=== PATIENT | male | born 1995 | race Caucasian/White ===

== ENCOUNTER 2023-02-22 15:22 | Emergency (ER) | payer SELFPAY ==
[~2023-02-22] VITALS: Ht 177.8 cm; Wt 74.0 kg
[~2023-02-22 15:22] MED LIST: LACT10SO7 MT; THIA100T72 MT
[2023-02-22 15:27] VITALS: O2SAT 98
[2023-02-22] MEDS ORDERED: ACETAMINOPHEN 325MG TABLET PO STA (16:15)
[2023-02-22 18:27] VITALS: BP 115/76; PULSE 69; RESP 16; TEMP 98.3
[2023-02-23] MEDS ORDERED: KEPP500 MT (01:27)
== END 2023-02-22 18:28 | disposition home or self-care (01) ==
LOC: ER 15:22
DX: R56.9 Unspecified convulsions (principal); R51.9 Headache, unspecified
CPT/HCPCS: 82962; 93005; 99283; Z7610 ×3

== ENCOUNTER 2023-02-22 20:54 | Emergency (ER) | payer SELFPAY ==
[~2023-02-22] VITALS: Ht 172.7 cm; Wt 70.0 kg
[2023-02-22 20:56] VITALS: TEMP 98.4; O2SAT 99
[2023-02-22] MEDS ORDERED: LEVETIRACETAM 1000MG PREMIX 100 ML IV ONE (21:00)
[2023-02-22 22:35] LABS: HEMATOCRIT. 41.9 % (42.0-52.0); HEMOGLOBIN. 13.9 g/dL (14.0-18.0); MEAN CORPUSCULAR HEMOGLOBIN 30.4 pg (28.0-32.0); MEAN CORPUSCULAR HGB CONC 33.1 g/dL (31.0-37.0); MEAN CORPUSCULAR VOLUME 91.9 fL (80.0-94.0); PLATELET 297 x1000/uL (130-400); RED BLOOD CELL COUNT 4.56 mill/uL (4.7-6.1); RED CELL DISTRIBUTION WIDTH 13.3 % (11.6-14.6); WHITE BLOOD COUNT 13.9 x1000/uL (4.5-11.0)
[2023-02-22 22:38] LABS: DIFFERENTIAL COMMENT 1
[2023-02-22 22:50] LABS: AMMONIA 42 uMol/L (<32); CALCIUM 9.2 mg/dL (8.5-10.1); CHLORIDE 103 mEq/L (98-107); INDEX HEMOLYSI 1 (1-3); INDEX ICTERIC 1 (1-4); INDEX LIPEMIC 1 (1-3); POTASSIUM 3.9 mEq/L (3.5-5.1); SODIUM 136 mEq/L (136-145)
[2023-02-22 22:51] LABS: ALBUMIN 4.7 g/dL (3.4-5.0); CARBON DIOXIDE 26 mEq/L (21-32); GLUCOSE 116 mg/dL (70-105); UREA NITROGEN BLOOD 9 mg/dL (7-21)
[2023-02-22 22:58] LABS: ALANINE AMINOTRANSFERASE 26 IU/L (13-61); ASPARTATE AMINOTRANSFERASE 20 IU/L (15-37); BILIRUBIN TOTAL 0.4 mg/dL (0.1-1.0); CREATININE 0.8 mg/dL (0.6-1.3); ETHANOL BLOOD < 10 mg/dL (<10); PROTEIN TOTAL 8.7 g/dL (6.0-8.3)
[2023-02-22 22:59] LABS: PLATELET ESTIMATE NORMAL
[2023-02-22] MEDS ORDERED: ACETAMINOPHEN WITH CODEINE 300/30MG TABLET PO ONE (23:00)
[2023-02-22] MEDS: ACETAMINOPHEN WITH CODEINE 300/30MG TABLET PO NR (23:58)
[2023-02-23] MEDS ORDERED: LACTULOSE 20G/30ML UDC PO ONE (01:00)
[2023-02-23 01:22] VITALS: BP 104/53; PULSE 78; RESP 22
[2023-02-23] MEDS ORDERED: KEPP500 MT (01:27)
[2023-02-23] MEDS: ACETAMINOPHEN WITH CODEINE 300/30MG TABLET PO NR (01:43)
== END 2023-02-23 01:45 | disposition home or self-care (01) ==
LOC: ER 20:54
DX: G40.909 Epilepsy, unspecified, not intractable, without status epilepticus (principal)
CPT/HCPCS: 80053; 80320; 82140; 85025; 36415; 70450; 96365; 96366; 99285; J1953; G0480

== ENCOUNTER 2023-03-20 12:52 | Emergency (ER) | payer SELFPAY ==
[~2023-03-20] VITALS: Ht 177.8 cm; Wt 64.0 kg
[~2023-03-20 12:52] MED LIST changes: +KEPP500 MT
[2023-03-20 12:54] VITALS: O2SAT 98
[2023-03-20] MEDS ORDERED: SODIUM CHLORIDE 0.9% 1,000 ML IV ONE (13:15)
[2023-03-20] MEDS ORDERED: LEVETIRACETAM 500MG PREMIX 100 ML IV ONE ×2 (13:15)
[2023-03-20 14:08] LABS: BASOPHILS % 0.6 % (0.0-2.0); EOSINOPHILS % 0.4 % (0.0-5.0); HEMOGLOBIN. 12.7 g/dL (14.0-18.0); LYMPHOCYTES % 14.8 % (20.0-50.0); MEAN CORPUSCULAR HEMOGLOBIN 31.1 pg (28.0-32.0); MEAN CORPUSCULAR HGB CONC 34.2 g/dL (31.0-37.0); MEAN CORPUSCULAR VOLUME 90.9 fL (80.0-94.0); MEAN PLATELET VOLUME 7.8 fl (7.4-10.4); MONOCYTES % 6.1 % (2.0-8.0); NEUTROPHILS % 78.1 % (40.0-76.0); PLATELET 255 x1000/uL (130-400); RED BLOOD CELL COUNT 4.08 mill/uL (4.7-6.1); RED CELL DISTRIBUTION WIDTH 13.2 % (11.6-14.6); WHITE BLOOD COUNT 6.5 x1000/uL (4.5-11.0)
[2023-03-20] MEDS ORDERED: LEVETIRACETAM 500MG PREMIX 100 ML IV NR (14:15)
[2023-03-20 15:37] VITALS: BP 108/67; PULSE 62; RESP 12; TEMP 98.4
[2023-03-20 19:39] LABS: ALANINE AMINOTRANSFERASE 14 IU/L (10-49); ALBUMIN 4.6 g/dL (3.2-4.8); ASPARTATE AMINOTRANSFERASE 23 IU/L (<34); BILIRUBIN TOTAL 0.3 mg/dL (0.1-1.0); CALCIUM 9.5 mg/dL (8.7-10.4); CARBON DIOXIDE 21 mEq/L (21-32); CHLORIDE 107 mEq/L (98-107); CREATINE KINASE 101 IU/L (46-171); CREATININE 0.8 mg/dL (0.6-1.3); GLUCOSE 89 mg/dL (70-105); POTASSIUM 4.6 mEq/L (3.5-5.1); PROTEIN TOTAL 7.4 g/dL (6.0-8.3); SODIUM 141 mEq/L (136-145); UREA NITROGEN BLOOD 8 mg/dL (9-23)
== END 2023-03-20 15:45 | disposition left against medical advice (07) ==
LOC: ER 12:52 → CANBEDREQ 03-21 10:09
DX: R56.9 Unspecified convulsions (principal)
CPT/HCPCS: 80053; 82550; 85025; 36415; 96365; 99284; J1953; J7030; Z7610 ×2

== ENCOUNTER 2023-04-14 15:33 | Emergency (ER) | payer SELFPAY ==
[~2023-04-14] VITALS: Ht 167.6 cm; Wt 65.0 kg
[2023-04-14 15:36] VITALS: BP 121/75; PULSE 88; RESP 16; TEMP 97; O2SAT 98
[2023-04-14] MEDS ORDERED: LEVETIRACETAM 500MG/5ML CUP PO ONE (15:45)
[2023-04-14 16:58] LABS: HEMATOCRIT. 41.7 % (42.0-52.0); HEMOGLOBIN. 13.8 g/dL (14.0-18.0); MEAN CORPUSCULAR HEMOGLOBIN 29.9 pg (28.0-32.0); MEAN CORPUSCULAR HGB CONC 32.9 g/dL (31.0-37.0); MEAN CORPUSCULAR VOLUME 90.7 fL (80.0-94.0); MEAN PLATELET VOLUME 7.8 fl (7.4-10.4); PLATELET 288 x1000/uL (130-400); RED CELL DISTRIBUTION WIDTH 13.5 % (11.6-14.6); WHITE BLOOD COUNT 17.9 x1000/uL (4.5-11.0)
[2023-04-14 17:00] LABS: ALANINE AMINOTRANSFERASE 16 IU/L (10-49); ASPARTATE AMINOTRANSFERASE 30 IU/L (<34); BILIRUBIN TOTAL 0.5 mg/dL (0.1-1.0); CALCIUM 9.7 mg/dL (8.7-10.4); CARBON DIOXIDE 22 mEq/L (21-32); CHLORIDE 108 mEq/L (98-107); CREATININE 1.2 mg/dL (0.6-1.3); GLUCOSE 122 mg/dL (70-105); POTASSIUM 4.5 mEq/L (3.5-5.1); PROTEIN TOTAL 8.5 g/dL (6.0-8.3); SODIUM 138 mEq/L (136-145); UREA NITROGEN BLOOD 16 mg/dL (9-23)
[2023-04-14 17:02] LABS: ETHANOL BLOOD < 10 mg/dL (<10)
[2023-04-14 17:04] LABS: DIFFERENTIAL COMMENT 1
[2023-04-14 21:17] LABS: PLATELET ESTIMATE NORMAL
== END 2023-04-14 19:37 | disposition home or self-care (01) ==
LOC: ER 15:47
DX: R56.9 Unspecified convulsions (principal)
CPT/HCPCS: 36415; 80053; 80320; 85025; 99283; G0480

== ENCOUNTER 2024-04-06 12:46 | Emergency (ER) | payer SELFPAY ==
[~2024-04-06] VITALS: Ht 172.7 cm; Wt 64.0 kg
[2024-04-06 12:56] VITALS: O2SAT 97
[2024-04-06] MEDS: LEVETIRACETAM 500MG TABLET PO ONE (13:49)
[2024-04-06 15:39] VITALS: BP 108/63; PULSE 78; RESP 14; TEMP 36.50292; O2SAT 100
[2024-04-06] MEDS ORDERED: KEPP500 MT (16:52)
== END 2024-04-06 17:23 | disposition home or self-care (01) ==
LOC: ER 12:53
DX: G40.909 Epilepsy, unspecified, not intractable, without status epilepticus (principal); Z91.148 Patient's other noncompliance with medication regimen for other reason
CPT/HCPCS: 99284

== ENCOUNTER 2024-06-07 06:46 | Inpatient (IN) | payer SELFPAY ==
[~2024-06-07] VITALS: Ht 165.1 cm; Wt 64.9 kg
[2024-06-07 06:49] VITALS: O2SAT 99
[2024-06-07] MEDS: LORAZEPAM 2MG/ML INJ IM ONE (07:24)
[2024-06-07] MEDS: LEVETIRACETAM 1000MG PREMIX 100 ML IV ONE (07:24)
[2024-06-07 08:00] LABS: CHLORIDE 105 mEq/L (98-107); POTASSIUM 3.9 mEq/L (3.5-5.1); SODIUM 139 mEq/L (136-145)
[2024-06-07 08:01] LABS: CALCIUM 9.4 mg/dL (8.7-10.4); CARBON DIOXIDE 17 mEq/L (21-32)
[2024-06-07 08:02] LABS: CLARITY URINE CLEAR (CLEAR); COLOR URINE YELLOW (YELLOW); GLUCOSE URINE NEGATIVE (NEGATIVE); KETONES URINE TRACE (NEGATIVE); LEUKOCYTE ESTERASE URINE NEGATIVE (NEGATIVE); NITRITE URINE NEGATIVE (NEGATIVE); OCCULT BLOOD URINE 2+ (NEGATIVE); PROTEIN URINE 2+ (NEGATIVE); SPECIFIC GRAVITY URINE 1.017 (1.005-1.030); UROBILINOGEN URINE 0.2 E.U./dL (0.2-1.0)
[2024-06-07 08:03] LABS: BASOPHILS % 0.8 % (0.0-2.0); EOSINOPHILS % 0.9 % (0.0-5.0); HEMATOCRIT. 43.7 % (42.0-52.0); HEMOGLOBIN. 14.2 g/dL (14.0-18.0); LYMPHOCYTES % 16.8 % (20.0-50.0); MEAN CORPUSCULAR HEMOGLOBIN 30.1 pg (28.0-32.0); MEAN CORPUSCULAR HGB CONC 32.5 g/dL (31.0-37.0); MEAN CORPUSCULAR VOLUME 92.4 fL (80.0-94.0); MEAN PLATELET VOLUME 7.5 fl (7.4-10.4); MONOCYTES % 7.2 % (2.0-8.0); NEUTROPHILS % 74.3 % (40.0-76.0); PLATELET 334 x1000/uL (130-400); RED BLOOD CELL COUNT 4.73 mill/uL (4.7-6.1); RED CELL DISTRIBUTION WIDTH 14.5 % (11.6-14.6); WHITE BLOOD COUNT 8.3 x1000/uL (4.5-11.0)
[2024-06-07 08:06] LABS: GLUCOSE 114 mg/dL (70-105)
[2024-06-07 08:07] LABS: UREA NITROGEN BLOOD 9 mg/dL (9-23)
[2024-06-07 08:08] LABS: ALANINE AMINOTRANSFERASE 13 IU/L (10-49); ALBUMIN 4.8 g/dL (3.2-4.8); AMMONIA 58 uMol/L (<32); ASPARTATE AMINOTRANSFERASE 24 IU/L (<34)
[2024-06-07 08:09] LABS: BILIRUBIN DIRECT 0.1 mg/dL (<=3.0); BILIRUBIN TOTAL 0.5 mg/dL (0.1-1.0)
[2024-06-07 08:15] LABS: BACTERIA URINE RARE; RBC URINE 0-2 /hpf (0-2); SQUAMOUS EPITHELIAL CELL URINE NONE SEEN /lpf (RARE/1+); WBC URINE 0-2 /hpf (0-2); YEAST URINE NONE SEEN
[2024-06-07 08:22] LABS: ETHANOL BLOOD < 10 mg/dL (<10)
[2024-06-07 08:24] LABS: *AMPHETAMINES SCREEN URINE NEGATIVE (NEGATIVE); *BARBITURATES SCREEN URINE NEGATIVE (NEGATIVE); *BENZODIAZEPINES SCREEN URINE NEGATIVE (NEGATIVE); *COCAINE SCREEN URINE PRESUMPTIVE POSITIVE (NEGATIVE)
[2024-06-07 08:25] LABS: CANNABINOID URINE SCREEN PRESUMPTIVE POSITIVE (NEGATIVE); ECSTASY MDMA SCREEN URINE NEGATIVE (NEGATIVE); METHADONE URINE SCREEN NEGATIVE (NEGATIVE); OPIATES URINE SCREEN NEGATIVE (NEGATIVE); PHENCYCLIDINE URINE SCREEN NEGATIVE (NEGATIVE)
[2024-06-07] MEDS: LACTULOSE 20G/30ML UDC PO ONE (09:33)
[2024-06-07] MEDS ORDERED: ACETAMINOPHEN 325MG TABLET PO PRN ×2 (09:45)
[2024-06-07] MEDS ORDERED: IPRATROPIUM/ALBUTEROL 0.5-3(2.5)MG/3ML NEB HHN PRN (09:45)
[2024-06-07] MEDS ORDERED: ONDANSETRON HCL 4MG/2ML INJ IV PRN (09:45)
[2024-06-07] MEDS ORDERED: DOCUSATE SODIUM 100MG CAPSULE PO PRN (09:45)
[2024-06-07] MEDS ORDERED: CLONIDINE 0.1MG TABLET PO PRN (09:45)
[2024-06-07] MEDS ORDERED: GUAIFENESIN 200MG/10ML SUGAR FREE UDC PO PRN (09:45)
[2024-06-07] MEDS: SODIUM CHLORIDE 0.9% 1,000 ML IV ONE (10:04)
[2024-06-07] MEDS ORDERED: LORAZEPAM 2MG/ML INJ IV PRN ×2 (11:00→21:30)
[2024-06-07] MEDS: LEVETIRACETAM 500MG TABLET PO SCH (11:58)
[2024-06-07] MEDS: LACTULOSE 20G/30ML UDC PO SCH (11:58)
[2024-06-07 12:00] VITALS: BP 120/59; PULSE 67; RESP 18; TEMP 36.6; TEMP 36.9; O2SAT 99
[2024-06-07] MEDS: MVI, ADULT NO.1 10 ML, FOLIC ACID 1 MG, THIAMINE HCL 100 MG in SODIUM CHLORIDE 0.9% 1,0... IV SCH (13:33)
[2024-06-07 16:30] VITALS: BP 116/60; PULSE 58; RESP 20; TEMP 37.1; O2SAT 99
[2024-06-07 16:52] LABS: TROPONIN I HIGH SENSITIVITY 11 ng/L (3.0-53)
[2024-06-07 16:53] LABS: CREATINE KINASE 178 IU/L (46-171)
[2024-06-07] MEDS ORDERED: LEVETIRACETAM 1000MG PREMIX 100 ML IV SCH (21:00)
[2024-06-07] MEDS ORDERED: LEVETIRACETAM 1,000MG in NACL 100ML PREMIX IV SCH (21:00)
[2024-06-08] MEDS ORDERED: PANTOPRAZOLE 40MG DR TABLET PO SCH (07:40)
[2024-06-08] MEDS ORDERED: FOLIC ACID 1MG TABLET PO SCH (09:00)
[2024-06-08] MEDS ORDERED: THIAMINE HCL 100MG TABLET PO SCH (09:00)
== END 2024-06-07 19:58 | disposition left against medical advice (07) | DRG 53 ==
LOC: ER 06:46 → 7WST 09:17 → EDBEDREQ 09:19
PROVIDERS: ADMIT Internal Medicine; ATTEND Internal Medicine
DX: R56.9 Unspecified convulsions (principal); E72.20 Disorder of urea cycle metabolism, unspecified; F10.10 Alcohol abuse, uncomplicated; F12.90 Cannabis use, unspecified, uncomplicated; F14.90 Cocaine use, unspecified, uncomplicated; F17.210 Nicotine dependence, cigarettes, uncomplicated; Z91.148 Patient's other noncompliance with medication regimen for other reason; Z91.199 Patient's noncompliance with other medical treatment and regimen due to unspecified reason
CPT/HCPCS: 36415; 80048; 80076; 80305; 80320; 81003; 82140; 82550; 83735; 84100; 84484; 85025; 93970; 99285; J1953; J2060; J3411; J3490; J7030; G0480